=== PATIENT | male | born 1985 | race American Indian/Alaskan Native ===

== ENCOUNTER 2016-06-30 18:13 | Emergency (ER) | payer MEDICAID, OTHER ==
[2016-06-30 19:11] VITALS: BP 133/72
[2016-06-30] MEDS ORDERED: LORazepam 0.5 MG Tab PO ONE (19:32)
--- NOTE | 2016-06-30 19:40 | EDM.PDOC ---
ED HPI EYE COMPLAINT - General Chief Complaint: Eye Problems Stated Complaint: ICHY,BURNING EYES Time Seen by Provider: 06/30/16 19:15 Source: Reports: Patient History Limitations: Reports: No limitations - History of Present Illness INITIAL COMMENTS - FREE TEXT/NARRATIVE: This 30 yo male patient reports with itching and discharge from his eyes over the past couple of days. Symptom Onset Date: 06/29/16 Timing/Duration: Reports: Constant, Getting worse - Related Data Allergies/ADRs: Allergies No Known Allergies Allergy (Verified 03/09/16 20:00) Home Meds: Ambulatory Orders Medication Instructions Recorded Confirmed FLUoxetine HCl [Fluoxetine HCl] 20 mg PO DAILY 03/09/16 06/30/16 hydrOXYzine HCl [Atarax] 25 mg PO DAILY PRN 03/09/16 06/30/16 Past Medical History HEENT History: Reports: Allergic rhinitis Respiratory History: Reports: Sleep apnea Psychiatric History: Reports: Anxiety, Depression - Past Surgical History GI Surgical History: Reports: Appendectomy Social & Family History - Tobacco Use Smoking Status *Q: Current Some Day Smoker Years of Tobacco use: 15 Packs/Tins Daily: 0.2 Used Tobacco, but Quit: No Second Hand Smoke Exposure: No - Recreational Drug Use Recreational Drug Use: No ED ROS GENERAL - Review of Systems Review Of Systems: ROS reveals no pertinent complaints other than HPI. ED EXAM GENERAL W FULL EYE - Physical Exam Exam: See Below Exam Limited By: No limitations General Appearance: alert, WD/WN, no apparent distress Eye Exam: bilateral eye: conjunctival injection, EOMI, PERRL Eyelids: bilateral: erythema Conjunctiva & Sclera: bilateral: injected Pupils: normal accommodation Pupillary Reaction: bilateral: brisk Ears: normal external exam, normal canal, hearing grossly normal, normal TMs Nose: normal inspection, normal mucosa, no blood Throat/Mouth: Normal inspection, Normal lips, Normal teeth, Normal gums, Normal oropharynx, Normal voice, No airway compromise Head: atraumatic, normocephalic Neck: normal inspection, supple, non-tender, full range of motion Respiratory/Chest: no respiratory distress, lungs clear, normal breath sounds, no accessory muscle use, chest non-tender Cardiovascular: normal peripheral pulses, regular rate, rhythm, no edema, no gallop, no JVD, no murmur, no rub GI/Abdominal: normal bowel sounds, soft, non tender, no organomegaly, no distention, no abnormal bruit, no mass (Male) Exam: Deferred Rectal (Males) Exam: Deferred Back Exam: normal inspection, full range of motion, NT Extremities: normal inspection, normal range of motion, non-tender, normal capillary refill, no pedal edema Neurological: alert, oriented, CN II-XII intact, normal cognition, normal gait, normal reflexes, no motor/sensory deficits Psychiatric: normal affect, normal mood Skin Exam: Warm, Dry, Intact, Normal color, No rash Lymphatic: no adenopathy Course - Vital Signs Last Recorded V/S: Last Vital Signs Temp 37.1 C 06/30/16 19:08 Pulse 110 H 06/30/16 19:08 Resp 20 06/30/16 19:08 BP 133/72 06/30/16 19:08 Pulse Ox 95 06/30/16 19:08 - Orders/Labs/Meds Meds: Medications Discontinued Medications Generic Name Dose Route Start Last Admin Trade Name Joseq PRN Reason Stop Dose Admin Lorazepam 0.5 mg 06/30/16 19:32 06/30/16 19:39 Ativan PO 06/30/16 19:33 0.5 mg ONETIME ONE Administration Polymyxin/Trimethoprim Sulfate Confirm 06/30/16 19:41 Polytrim Ophth Soln Administered 06/30/16 19:42 Dose 10 ml .ROUTE .STK-MED ONE Departure - Departure Time of Disposition: 19:36 Disposition: Home, Self-Care 01 Condition: fair Clinical Impression: Anxiety Conjunctivitis Qualifiers: Conjunctivitis type: acute Acute conjunctivitis type: bacterial Laterality: bilateral Qualified Code(s): H10.33 - Unspecified acute conjunctivitis, bilateral Instructions: Bacterial Conjunctivitis, [id number] Forms: ED Department Discharge Care Plan Goals: The patient was advised of the examination results during the visit. The patient was given an oral dose of Ativan (0.5 mg) while in the ED. The patient was discharged with Polytrim to place 1 drop in each eye 4 times per day for 7 days. If the patient has any additional symptoms or concerns, the patient should follow-up with his primary care facility or return to the emergency department.
[2016-06-30] MEDS ORDERED: Polymyxin B/Trimethoprim 10 ML Bottle ONE (19:41)
[2016-06-30] MEDS ORDERED: Polymyxin B/Trimethoprim 10 ML Bottle EYEBOTH ONE (19:41)
== END 2016-06-30 19:49 | disposition home or self-care (01) ==
LOC: DL.ED 18:13
DX: H10.33 Unspecified acute conjunctivitis, bilateral (principal); F41.9 Anxiety disorder, unspecified; F17.210 Nicotine dependence, cigarettes, uncomplicated; Z90.49 Acquired absence of other specified parts of digestive tract; Z79.899 Other long term (current) drug therapy
CPT/HCPCS: 99283; A9270

== ENCOUNTER 2016-12-09 02:02 | Emergency (ER) | payer SELFPAY ==
[2016-12-09 02:01] VITALS: BP 138/80
--- NOTE | 2016-12-09 02:01 | EDM.PDOC ---
ED HPI GENERAL MEDICAL PROBLEM - General Stated Complaint: IN BY AMBULANCE Time Seen by Provider: 12/09/16 01:54 Source of Information: Reports: Patient, EMS - History of Present Illness INITIAL COMMENTS - FREE TEXT/NARRATIVE: ED via [facility]. c/o pain to right ankle after missing step going down stairs. [place] pop in ankle and unable to bear weight. Air splint per EMS to right ankle. Onset: Today Right Ankle Pain Score (Numeric/FACES): 9 - Related Data Allergies Allergy/AdvReac Type Severity Reaction Status Date / Time No Known Allergies Allergy Verified 12/09/16 02:01 Home Meds: Home Meds . [No Known Home Meds] 12/09/16 [History] Past Medical History HEENT History: Reports: Allergic Rhinitis Respiratory History: Reports: Sleep Apnea Psychiatric History: Reports: Anxiety, Depression - Past Surgical History GI Surgical History: Reports: Appendectomy Social & Family History - Tobacco Use Smoking Status *Q: Current Some Day Smoker Years of Tobacco use: 15 Packs/Tins Daily: 0.2 Used Tobacco, but Quit: No Second Hand Smoke Exposure: No - Recreational Drug Use Recreational Drug Use: No Review of Systems - Review of Systems Review Of Systems: ROS reveals no pertinent complaints other than HPI. ED EXAM, GENERAL - Physical Exam Exam: See Below Exam Limited By: No Limitations General Appearance: Alert, Mild Distress, Obese Eye Exam: Bilateral Eye: EOMI Ears: Normal External Exam Nose: Normal Inspection Peripheral Pulses: 2+: Dorsalis Pedis (R) Extremities: Joint Swelling (right lateral ankle pain with movement) Neurological: Alert, Oriented, Normal Cognition Course - Vital Signs Last Recorded V/S: Last Vital Signs Temp 97.7 F 12/09/16 01:55 Pulse 118 H 12/09/16 01:55 Resp 18 12/09/16 01:55 BP 138/80 12/09/16 01:55 Pulse Ox 95 12/09/16 01:55 - Orders/Labs/Meds Orders: Active Orders 24 hr Category Date Time Status Ankle Min 3V Rt [CR] Urgent Exams 12/09/16 02:03 Taken Departure - Departure Time of Disposition: 02:53 Disposition: Home, Self-Care 01 Condition: Good Clinical Impression: Ankle sprain Qualifiers: Encounter type: initial encounter Involved ligament of ankle: unspecified ligament Laterality: right Qualified Code(s): S93.401A - Sprain of unspecified ligament of right ankle, initial encounter - Discharge Information Instructions: Crutch Use, [id number], Ankle Sprain, [id number] Additional Instructions: alternate tylenol and ibuprofen for discomfort recheck in clinic 2 weeks Cam Walker Crutches with weight bearing as tolerated. Rest , ice, and elevation for 48 hours. - My Orders Last 24 Hours: My Active Orders 12/09/16 02:03 Ankle Min 3V Rt [CR] Urgent - Assessment/Plan Last 24 Hours: My Active Orders 12/09/16 02:03 Ankle Min 3V Rt [CR] Urgent
[2016-12-09] MEDS ORDERED: Ibuprofen 600 MG Tab PO ONE (02:55)
== END 2016-12-09 03:08 | disposition home or self-care (01) ==
LOC: DL.ED 02:02
DX: S93.401A Sprain of unspecified ligament of right ankle, initial encounter (principal); F17.210 Nicotine dependence, cigarettes, uncomplicated; Z90.49 Acquired absence of other specified parts of digestive tract; W10.9XXA Fall (on) (from) unspecified stairs and steps, initial encounter
CPT/HCPCS: 73610; 99283; A9270

== ENCOUNTER 2017-07-31 15:45 | Inpatient (IN) | payer MEDICAID ==
[2017-07-31] MEDS ORDERED: Iopamidol 755 Mg/ML 100 ML Bottle IVPUSH ONE (18:05)
[2017-07-31] MEDS ORDERED: Piperacillin/Tazobactam 3.375 GM in Sodium Chloride 0.9% 100 ML IV ONE (20:55)
[2017-08-01] MEDS ORDERED: Vancomycin 2 GM in Sodium Chloride 0.9% 500 ML IV ONE (03:00)
[2017-08-01] MEDS ORDERED: diphenhydrAMINE 25 MG Tab PO PRN (03:35)
[2017-08-01 03:48] LABS: ANION GAP 8.5; CHLORIDE,CL 103 mmol/L (101-111); SODIUM,NA 135 mmol/L (135-145)
[2017-08-01] MEDS: Vancomycin 2 GM in Sodium Chloride 0.9% 500 ML IV SCH ×3 (03:54→18:24)
[2017-08-01] MEDS: Acetaminophen 325 MG Tab PO PRN ×4 (03:57→20:03)
[2017-08-01] MEDS: guaiFENesin 100 MG/5 ML Soln 5 ML UD Cup PO PRN ×3 (04:53→20:03)
[2017-08-01] MEDS: Piperacillin/Tazobactam 3.375 GM in Sodium Chloride 0.9% 100 ML IV SCH ×3 (05:41→21:00)
[2017-08-01] MEDS: Heparin Sodium 5,000 Units/ML Vial SUBCUT SCH ×3 (06:13→21:43)
[2017-08-01 07:03] LABS: ANION GAP 12.3; CHLORIDE,CL 100 mmol/L (101-111); SODIUM,NA 133 mmol/L (135-145)
[2017-08-01] MEDS: Gentamicin 0.3% Ophth Soln 5 ML Bottle EYEBOTH SCH ×5 (07:13→21:06)
[2017-08-01] MEDS ORDERED: Benzocaine/Cetylpyridinium/Menthol Lozenge MUCMEM PRN (11:26)
--- NOTE | 2017-08-01 13:03 | PCM.HP ---
H&P History of Present Illness - General Date of Service: 07/31/17 Admit Problem/Dx: Admission Diagnosis/Problem Admission Diagnosis/Problem Cellulitis Source of Information: Patient, Provider - History of Present Illness Initial Comments - Free Text/Narative: the patient is a 31-year-old morbidly obese gentleman. He denies any significant past medical history. He came into the emergency room with left lower extremity pain. The pain started a few days ago. it is associated with the left leg redness. He is also complaining of cough, no sputum, subjective fever. He noticed blood in his underwear but he was not clear where it is coming from. He is minimally active. Morbidly obese. Has not changed underwear apparently for days. Left Lower Leg Pain Score (Numeric/FACES): 5 - Related Data Allergies/Adverse Reactions: Allergies Allergy/AdvReac Type Severity Reaction Status Date / Time No Known Allergies Allergy Verified 08/01/17 03:26 Home Medications: Home Meds . [No Known Home Meds] 12/09/16 [History] Past Medical History HEENT History: Reports: Allergic Rhinitis Respiratory History: Reports: Sleep Apnea Psychiatric History: Reports: Anxiety, Depression - Past Surgical History GI Surgical History: Reports: Appendectomy Social & Family History - Tobacco Use Smoking Status *Q: Current Some Day Smoker Years of Tobacco use: 15 Packs/Tins Daily: 0.2 Used Tobacco, but Quit: No Second Hand Smoke Exposure: No - Recreational Drug Use Recreational Drug Use: No H&P Review of Systems - Review of Systems: Review Of Systems: See Below General: Reports: Fever (subjective) Pulmonary: Reports: Cough. Denies: Shortness of Breath, Sputum, Hemoptysis Cardiovascular: Denies: Chest Pain Gastrointestinal: Denies: Abdominal Pain, Diarrhea Genitourinary: Denies: Dysuria Skin: Reports: Other (left leg redness, left lower abdominal redness.) Neurological: Reports: No Symptoms Exam - Exam Exam: See Below - Vital Signs Vital Signs: Last Vital Signs Temp 37.7 C 08/01/17 11:34 Pulse 104 H 08/01/17 11:34 Resp 20 08/01/17 11:34 BP 146/72 H 08/01/17 11:34 Pulse Ox 95 08/01/17 11:34 Weight: 199.036 kg - Exam General: Alert, Oriented Neck: Supple Lungs: Clear to Auscultation, Normal Respiratory Effort GI/Abdominal Exam: Normal Bowel Sounds, Soft, Non-Tender, Other (morbidly obese) Extremities: No: Pedal Edema Skin: Warm, Dry, Other (left leg and left lower abdominal skin redness) Neuro Extensive - Mental Status: Alert, Oriented x3 Psychiatric: Alert, Normal Affect, Normal Mood - Patient Data Lab Results Last 24 hrs: Laboratory Results - last 24 hr 07/31/17 07/31/17 07/31/17 Range/Units 17:10 17:10 17:10 WBC 6.9 (5.0-10.0) 10^3/uL RBC 3.68 L (4.6-6.2) 10^6/uL Hgb 11.3 L (14.0-18.0) g/dL Hct 34.1 L (40.0-54.0) % MCV 92.7 (80-100) fL MCH 30.7 (27.0-34.0) pg MCHC 33.1 (33.0-35.0) g/dL Plt Count 145 L (150-450) 10^3/uL Neut % (Auto) 64.5 (42.2-75.2) % Lymph % (Auto) 21.4 (20.5-50.1) % [place] % (Auto) 11.6 H (2-8) % Eos % (Auto) 1.3 (1.0-3.0) % Baso % (Auto) 1.2 H (0.0-1.0) % D-Dimer, Quantitative 1350 H (0-400) ng/mL Sodium 135 (135-145) mmol/L Potassium 3.5 L (3.6-5.0) mmol/L Chloride 103 (101-111) mmol/L Carbon Dioxide 27.0 (21.0-31.0) mmol/L Anion Gap 8.5 BUN 4 L (7-18) mg/dL Creatinine 0.6 (0.6-1.3) mg/dL Est Cr Clr Drug Dosing 195.80 mL/min Estimated GFR (MDRD) > 60 BUN/Creatinine Ratio 6.66 Glucose 102 (74-105) mg/dL Lactic Acid (0.5-2.2) mmol/L Calcium 7.7 L (8.4-10.2) mg/dl Total Bilirubin 1.1 H (0.2-1.0) mg/dL AST 312 H (10-42) IU/L ALT 70 H (10-60) IU/L Alkaline Phosphatase 108 (42-121) IU/L C-Reactive Protein (0.0-1.3) mg/dL B-Natriuretic Peptide 119 H (0-100) pg/ml Total Protein 8.2 (6.7-8.2) g/dl Albumin 2.6 L (3.2-5.5) g/dl Globulin 5.6 Albumin/Globulin Ratio 0.46 Urine Color (YELLOW) Urine Appearance (CLEAR) Urine pH (5.0-9.0) Ur Specific [place] (1.005-1.030) Urine Protein (NEGATIVE) Urine Glucose (UA) (NEGATIVE) Urine Ketones (NEGATIVE) mg/dL Urine Occult Blood (NEGATIVE) Urine Nitrite (NEGATIVE) Urine Bilirubin (NEGATIVE) Urine Urobilinogen (0.2-1.0) mg/dL Ur Leukocyte Esterase (NEGATIVE) Urine RBC /HPF Urine WBC (0-5/HPF) /HPF Ur Epithelial Cells /HPF Amorphous Sediment (0/HPF) /HPF Urine Bacteria (0-FEW/HPF) /HPF Urine Mucus /LPF Ketones Negative 07/31/17 07/31/17 07/31/17 Range/Units 17:10 17:10 18:14 WBC (5.0-10.0) 10^3/uL RBC (4.6-6.2) 10^6/uL Hgb (14.0-18.0) g/dL Hct (40.0-54.0) % MCV (80-100) fL MCH (27.0-34.0) pg MCHC (33.0-35.0) g/dL Plt Count (150-450) 10^3/uL Neut % (Auto) (42.2-75.2) % Lymph % (Auto) (20.5-50.1) % [place] % (Auto) (2-8) % Eos % (Auto) (1.0-3.0) % Baso % (Auto) (0.0-1.0) % D-Dimer, Quantitative (0-400) ng/mL Sodium (135-145) mmol/L Potassium (3.6-5.0) mmol/L Chloride (101-111) mmol/L Carbon Dioxide (21.0-31.0) mmol/L Anion Gap BUN (7-18) mg/dL Creatinine (0.6-1.3) mg/dL Est Cr Clr Drug Dosing mL/min Estimated GFR (MDRD) BUN/Creatinine Ratio Glucose (74-105) mg/dL Lactic Acid 1.3 (0.5-2.2) mmol/L Calcium (8.4-10.2) mg/dl Total Bilirubin (0.2-1.0) mg/dL AST (10-42) IU/L ALT (10-60) IU/L Alkaline Phosphatase (42-121) IU/L C-Reactive Protein 1.5 H (0.0-1.3) mg/dL B-Natriuretic Peptide (0-100) pg/ml Total Protein (6.7-8.2) g/dl Albumin (3.2-5.5) g/dl Globulin Albumin/Globulin Ratio Urine Color Yellow (YELLOW) Urine Appearance Clear (CLEAR) Urine pH 7.0 (5.0-9.0) Ur Specific [place] 1.010 (1.005-1.030) Urine Protein Negative (NEGATIVE) Urine Glucose (UA) Negative (NEGATIVE) Urine Ketones Negative (NEGATIVE) mg/dL Urine Occult Blood Negative (NEGATIVE) Urine Nitrite Negative (NEGATIVE) Urine Bilirubin Negative (NEGATIVE) Urine Urobilinogen 2.0 H (0.2-1.0) mg/dL Ur Leukocyte Esterase Negative (NEGATIVE) Urine RBC 0-5 /HPF Urine WBC 0-5 (0-5/HPF) /HPF Ur Epithelial Cells Rare /HPF Amorphous Sediment Rare (0/HPF) /HPF Urine Bacteria Rare (0-FEW/HPF) /HPF Urine Mucus Rare /LPF Ketones 08/01/17 08/01/17 Range/Units 06:05 06:05 WBC 6.9 (5.0-10.0) 10^3/uL RBC 3.76 L (4.6-6.2) 10^6/uL Hgb 11.6 L (14.0-18.0) g/dL Hct 34.8 L (40.0-54.0) % MCV 92.6 (80-100) fL MCH 30.9 (27.0-34.0) pg MCHC 33.3 (33.0-35.0) g/dL Plt Count 151 (150-450) 10^3/uL Neut % (Auto) (42.2-75.2) % Lymph % (Auto) (20.5-50.1) % [place] % (Auto) (2-8) % Eos % (Auto) (1.0-3.0) % Baso % (Auto) (0.0-1.0) % D-Dimer, Quantitative (0-400) ng/mL Sodium 133 L (135-145) mmol/L Potassium 3.3 L (3.6-5.0) mmol/L Chloride 100 L (101-111) mmol/L Carbon Dioxide 24.0 (21.0-31.0) mmol/L Anion Gap 12.3 BUN 4 L (7-18) mg/dL Creatinine 0.6 (0.6-1.3) mg/dL Est Cr Clr Drug Dosing 195.80 mL/min Estimated GFR (MDRD) > 60 BUN/Creatinine Ratio Glucose 88 (74-105) mg/dL Lactic Acid (0.5-2.2) mmol/L Calcium 7.8 L (8.4-10.2) mg/dl Total Bilirubin (0.2-1.0) mg/dL AST (10-42) IU/L ALT (10-60) IU/L Alkaline Phosphatase (42-121) IU/L C-Reactive Protein (0.0-1.3) mg/dL B-Natriuretic Peptide (0-100) pg/ml Total Protein (6.7-8.2) g/dl Albumin (3.2-5.5) g/dl Globulin Albumin/Globulin Ratio Urine Color (YELLOW) Urine Appearance (CLEAR) Urine pH (5.0-9.0) Ur Specific [place] (1.005-1.030) Urine Protein (NEGATIVE) Urine Glucose (UA) (NEGATIVE) Urine Ketones (NEGATIVE) mg/dL Urine Occult Blood (NEGATIVE) Urine Nitrite (NEGATIVE) Urine Bilirubin (NEGATIVE) Urine Urobilinogen (0.2-1.0) mg/dL Ur Leukocyte Esterase (NEGATIVE) Urine RBC /HPF Urine WBC (0-5/HPF) /HPF Ur Epithelial Cells /HPF Amorphous Sediment (0/HPF) /HPF Urine Bacteria (0-FEW/HPF) /HPF Urine Mucus /LPF Ketones Result Diagrams: 08/01/17 06:05 08/01/17 06:05 Derrick Results Last 24 hrs: Microbiology 07/31/17 17:22 Group A Streptococcus Rapid Screen - Final Throat NEGATIVE STREP A SCREEN 07/31/17 17:22 Influenza Type A Antigen Screen - Final Nasal, Unspecified NEGATIVE INFLUENZA A VIRUS AG Influenza Type B Antigen Screen - Final NEGATIVE INFLUENZA B VIRUS AG - Problem List (1) Cellulitis SNOMED Code(s): 227415326 ICD Code: L03.90 - CELLULITIS, UNSPECIFIED Status: Acute Current Visit: Yes Problem List Initiated/Reviewed/Updated: Yes Orders Last 24hrs: Active Orders 24 hr Category Date Time Status Admission Diagnosis [ADT] Routine ADT 08/01/17 03:28 Ordered Patient Status [ADT] Routine ADT 07/31/17 20:35 Active Activity as Tolerated [RC] .Routine Care 08/01/17 03:32 Active Vital Signs [RC] 04,08,12,16,20,00 Care 08/01/17 03:32 Active Regular Diet [DIET] Diet 08/01/17 Breakfast Active Chest 1V Frontal [CR] Routine Exams 07/31/17 16:35 Taken CULTURE BLOOD [BC] Routine Lab 07/31/17 17:10 Received CULTURE BLOOD [BC] Routine Lab 07/31/17 17:10 Received CULTURE STREP A CONFIRMATION [RM] Routine Lab 07/31/17 17:22 Results STREP SCRN A RAPID W CULT CONF [RM] Routine Lab 07/31/17 17:22 Results VANCOMYCIN TROUGH [CHEM] Timed Lab 08/02/17 02:00 Ordered Acetaminophen [Tylenol] Med 08/01/17 03:35 Active 650 mg PO Q4H PRN Benzocaine/Cetylpyrd/Menthol [Cepacol Sore Throat] Med 08/01/17 11:26 Active 1 lozenge MUCMEM Q6H PRN Gentamicin [Garamycin 0.3% Ophth Soln] Med 08/01/17 08:00 Active 0 ml EYEBOTH QID Heparin Sodium Med 08/01/17 06:00 Active 5,000 units SUBCUT Q8H Piperacillin/Tazobactam [Zosyn] 3.375 gm Med 08/01/17 05:00 Active Sodium Chloride 0.9% [Normal Saline] 100 ml IV Q8H Potassium Chloride [Klor-Con 10] Med 08/01/17 12:51 Once 40 meq PO ONETIME ONE Vancomycin 2 gm Med 08/01/17 03:00 Active Sodium Chloride 0.9% [Normal Saline] 500 ml IV Q8H Vancomycin Pharmacy to Dose [Pharmacy to Dose - Med 08/01/17 03:45 Pending Vancomycin] 1 dose .XX ASDIRECTED Zolpidem [Ambien] Med 08/01/17 03:39 Active 5 mg PO BEDTIME PRN diphenhydrAMINE [Benadryl] Med 08/01/17 03:35 Active 25 mg PO BEDTIME PRN guaiFENesin [Robitussin] Med 08/01/17 04:00 Active 200 mg PO Q6H PRN Resuscitation Status Routine Resus Stat 08/01/17 03:30 Ordered Medication Orders Acetaminophen (Tylenol) 650 mg PO Q4H PRN PRN Reason: Fever Last Admin: 08/01/17 08:52 Dose: 650 mg Admin: 08/01/17 03:57 Dose: 650 mg Benzocaine/Menthol (Cepacol Sore Throat) 1 lozenge MUCMEM Q6H PRN PRN Reason: cough, sore throat Diphenhydramine HCl (Benadryl) 25 mg PO BEDTIME PRN PRN Reason: Sleep Gentamicin Sulfate (Garamycin 0.3% Oph Soln) 0 ml EYEBOTH QID COUNT INCLUDES THE [facility] Last Admin: 08/01/17 10:26 Dose: Admin: 08/01/17 07:13 Dose: Guaifenesin (Robitussin) 200 mg PO Q6H PRN PRN Reason: Cough Last Admin: 08/01/17 04:53 Dose: 200 mg Heparin Sodium (Porcine) (Heparin Sodium) 5,000 units SUBCUT Q8H COUNT INCLUDES THE [facility] Last Admin: 08/01/17 06:13 Dose: 5,000 units Piperacillin Sod/Tazobactam (Sod 3.375 gm/ Sodium Chloride) 100 mls @ 200 mls/ hr IV Q8H COUNT INCLUDES THE [facility] Last Admin: 08/01/17 05:41 Dose: 200 mls/hr Vancomycin HCl 2 gm/ Sodium (Chloride) 500 mls @ 333.333 mls/hr IV Q8H COUNT INCLUDES THE [facility] Last Admin: 08/01/17 11:03 Dose: 333.333 mls/hr Admin: 08/01/17 03:54 Dose: Vancomycin HCl (Pharmacy To Dose - Vancomycin) 1 dose .XX ASDIRECTED COUNT INCLUDES THE [facility] Zolpidem Tartrate (Ambien) 5 mg PO BEDTIME PRN PRN Reason: Sleep Assessment/Plan Comment:: The patient is a 31-year-old morbidly obese gentleman who presented with subjective fever, cough, left lower extremity distal redness, redness of the left abdominal pannus area. #1 CT of the chest showed right infiltrate Will treat for pneumonia Obtain sputum culture, blood cultures Treat with Zosyn and vancomycin #2 left lower extremity redness possible cellulitis, Possible cellulitis of the lower abdominal wall There are a few follicles but no apparent abscess. Will obtain blood culture Treat with Zosyn and vancomycin #3 blood in the underwear The source is not obvious This is small amount to be GI bleed, might be an abscess that opened and drained Monitor #4 DVT prophylaxis will be with subcutaneous heparin
--- NOTE | 2017-08-01 13:09 | PCM.PN ---
- General Info Date of Service: 08/01/17 Admission Dx/Problem (Free Text): Admission Diagnosis/Problem Admission Diagnosis/Problem Cellulitis Subjective Update: overnight no apparent disorder bleeding. Had low-grade temperature. Coughing with no sputum. No abdominal pain, chest pain, shortness of breath. - Review of Systems General: Denies: Weakness Cardiovascular: Denies: Edema Skin: Reports: Other (lower extremity redness and lower abdominal redness continued) - Patient Data Vitals - Most Recent: Last Vital Signs Temp 37.7 C 08/01/17 11:34 Pulse 104 H 08/01/17 11:34 Resp 20 08/01/17 11:34 BP 146/72 H 08/01/17 11:34 Pulse Ox 95 08/01/17 11:34 Weight - Most Recent: 199.036 kg I&O - Last 24 Hours: Intake & Output 07/31/17 08/01/17 08/01/17 22:59 06:59 14:59 Intake Total 1048 2440 Output Total 300 650 Balance 748 1790 Lab Results Last 24 Hours: Laboratory Results - last 24 hr 07/31/17 07/31/17 07/31/17 Range/Units 17:10 17:10 17:10 WBC 6.9 (5.0-10.0) 10^3/uL RBC 3.68 L (4.6-6.2) 10^6/uL Hgb 11.3 L (14.0-18.0) g/dL Hct 34.1 L (40.0-54.0) % MCV 92.7 (80-100) fL MCH 30.7 (27.0-34.0) pg MCHC 33.1 (33.0-35.0) g/dL Plt Count 145 L (150-450) 10^3/uL Neut % (Auto) 64.5 (42.2-75.2) % Lymph % (Auto) 21.4 (20.5-50.1) % [place] % (Auto) 11.6 H (2-8) % Eos % (Auto) 1.3 (1.0-3.0) % Baso % (Auto) 1.2 H (0.0-1.0) % D-Dimer, Quantitative 1350 H (0-400) ng/mL Sodium 135 (135-145) mmol/L Potassium 3.5 L (3.6-5.0) mmol/L Chloride 103 (101-111) mmol/L Carbon Dioxide 27.0 (21.0-31.0) mmol/L Anion Gap 8.5 BUN 4 L (7-18) mg/dL Creatinine 0.6 (0.6-1.3) mg/dL Est Cr Clr Drug Dosing 195.80 mL/min Estimated GFR (MDRD) > 60 BUN/Creatinine Ratio 6.66 Glucose 102 (74-105) mg/dL Lactic Acid (0.5-2.2) mmol/L Calcium 7.7 L (8.4-10.2) mg/dl Total Bilirubin 1.1 H (0.2-1.0) mg/dL AST 312 H (10-42) IU/L ALT 70 H (10-60) IU/L Alkaline Phosphatase 108 (42-121) IU/L C-Reactive Protein (0.0-1.3) mg/dL B-Natriuretic Peptide 119 H (0-100) pg/ml Total Protein 8.2 (6.7-8.2) g/dl Albumin 2.6 L (3.2-5.5) g/dl Globulin 5.6 Albumin/Globulin Ratio 0.46 Urine Color (YELLOW) Urine Appearance (CLEAR) Urine pH (5.0-9.0) Ur Specific [place] (1.005-1.030) Urine Protein (NEGATIVE) Urine Glucose (UA) (NEGATIVE) Urine Ketones (NEGATIVE) mg/dL Urine Occult Blood (NEGATIVE) Urine Nitrite (NEGATIVE) Urine Bilirubin (NEGATIVE) Urine Urobilinogen (0.2-1.0) mg/dL Ur Leukocyte Esterase (NEGATIVE) Urine RBC /HPF Urine WBC (0-5/HPF) /HPF Ur Epithelial Cells /HPF Amorphous Sediment (0/HPF) /HPF Urine Bacteria (0-FEW/HPF) /HPF Urine Mucus /LPF Ketones Negative 07/31/17 07/31/17 07/31/17 Range/Units 17:10 17:10 18:14 WBC (5.0-10.0) 10^3/uL RBC (4.6-6.2) 10^6/uL Hgb (14.0-18.0) g/dL Hct (40.0-54.0) % MCV (80-100) fL MCH (27.0-34.0) pg MCHC (33.0-35.0) g/dL Plt Count (150-450) 10^3/uL Neut % (Auto) (42.2-75.2) % Lymph % (Auto) (20.5-50.1) % [place] % (Auto) (2-8) % Eos % (Auto) (1.0-3.0) % Baso % (Auto) (0.0-1.0) % D-Dimer, Quantitative (0-400) ng/mL Sodium (135-145) mmol/L Potassium (3.6-5.0) mmol/L Chloride (101-111) mmol/L Carbon Dioxide (21.0-31.0) mmol/L Anion Gap BUN (7-18) mg/dL Creatinine (0.6-1.3) mg/dL Est Cr Clr Drug Dosing mL/min Estimated GFR (MDRD) BUN/Creatinine Ratio Glucose (74-105) mg/dL Lactic Acid 1.3 (0.5-2.2) mmol/L Calcium (8.4-10.2) mg/dl Total Bilirubin (0.2-1.0) mg/dL AST (10-42) IU/L ALT (10-60) IU/L Alkaline Phosphatase (42-121) IU/L C-Reactive Protein 1.5 H (0.0-1.3) mg/dL B-Natriuretic Peptide (0-100) pg/ml Total Protein (6.7-8.2) g/dl Albumin (3.2-5.5) g/dl Globulin Albumin/Globulin Ratio Urine Color Yellow (YELLOW) Urine Appearance Clear (CLEAR) Urine pH 7.0 (5.0-9.0) Ur Specific [place] 1.010 (1.005-1.030) Urine Protein Negative (NEGATIVE) Urine Glucose (UA) Negative (NEGATIVE) Urine Ketones Negative (NEGATIVE) mg/dL Urine Occult Blood Negative (NEGATIVE) Urine Nitrite Negative (NEGATIVE) Urine Bilirubin Negative (NEGATIVE) Urine Urobilinogen 2.0 H (0.2-1.0) mg/dL Ur Leukocyte Esterase Negative (NEGATIVE) Urine RBC 0-5 /HPF Urine WBC 0-5 (0-5/HPF) /HPF Ur Epithelial Cells Rare /HPF Amorphous Sediment Rare (0/HPF) /HPF Urine Bacteria Rare (0-FEW/HPF) /HPF Urine Mucus Rare /LPF Ketones 08/01/17 08/01/17 Range/Units 06:05 06:05 WBC 6.9 (5.0-10.0) 10^3/uL RBC 3.76 L (4.6-6.2) 10^6/uL Hgb 11.6 L (14.0-18.0) g/dL Hct 34.8 L (40.0-54.0) % MCV 92.6 (80-100) fL MCH 30.9 (27.0-34.0) pg MCHC 33.3 (33.0-35.0) g/dL Plt Count 151 (150-450) 10^3/uL Neut % (Auto) (42.2-75.2) % Lymph % (Auto) (20.5-50.1) % [place] % (Auto) (2-8) % Eos % (Auto) (1.0-3.0) % Baso % (Auto) (0.0-1.0) % D-Dimer, Quantitative (0-400) ng/mL Sodium 133 L (135-145) mmol/L Potassium 3.3 L (3.6-5.0) mmol/L Chloride 100 L (101-111) mmol/L Carbon Dioxide 24.0 (21.0-31.0) mmol/L Anion Gap 12.3 BUN 4 L (7-18) mg/dL Creatinine 0.6 (0.6-1.3) mg/dL Est Cr Clr Drug Dosing 195.80 mL/min Estimated GFR (MDRD) > 60 BUN/Creatinine Ratio Glucose 88 (74-105) mg/dL Lactic Acid (0.5-2.2) mmol/L Calcium 7.8 L (8.4-10.2) mg/dl Total Bilirubin (0.2-1.0) mg/dL AST (10-42) IU/L ALT (10-60) IU/L Alkaline Phosphatase (42-121) IU/L C-Reactive Protein (0.0-1.3) mg/dL B-Natriuretic Peptide (0-100) pg/ml Total Protein (6.7-8.2) g/dl Albumin (3.2-5.5) g/dl Globulin Albumin/Globulin Ratio Urine Color (YELLOW) Urine Appearance (CLEAR) Urine pH (5.0-9.0) Ur Specific [place] (1.005-1.030) Urine Protein (NEGATIVE) Urine Glucose (UA) (NEGATIVE) Urine Ketones (NEGATIVE) mg/dL Urine Occult Blood (NEGATIVE) Urine Nitrite (NEGATIVE) Urine Bilirubin (NEGATIVE) Urine Urobilinogen (0.2-1.0) mg/dL Ur Leukocyte Esterase (NEGATIVE) Urine RBC /HPF Urine WBC (0-5/HPF) /HPF Ur Epithelial Cells /HPF Amorphous Sediment (0/HPF) /HPF Urine Bacteria (0-FEW/HPF) /HPF Urine Mucus /LPF Ketones Derrick Results Last 24 Hours: Microbiology 07/31/17 17:22 Group A Streptococcus Rapid Screen - Final Throat NEGATIVE STREP A SCREEN 07/31/17 17:22 Influenza Type A Antigen Screen - Final Nasal, Unspecified NEGATIVE INFLUENZA A VIRUS AG Influenza Type B Antigen Screen - Final NEGATIVE INFLUENZA B VIRUS AG Med Orders - Current: Current Medications Acetaminophen (Tylenol) 650 mg PO Q4H PRN PRN Reason: Fever Last Admin: 08/01/17 08:52 Dose: 650 mg Benzocaine/Menthol (Cepacol Sore Throat) 1 lozenge MUCMEM Q6H PRN PRN Reason: cough, sore throat Diphenhydramine HCl (Benadryl) 25 mg PO BEDTIME PRN PRN Reason: Sleep Gentamicin Sulfate (Garamycin 0.3% Ophth Soln) 0 ml EYEBOTH QID [facility] Last Admin: 08/01/17 10:26 Dose: Not Given Guaifenesin (Robitussin) 200 mg PO Q6H PRN PRN Reason: Cough Last Admin: 08/01/17 04:53 Dose: 200 mg Heparin Sodium (Porcine) (Heparin Sodium) 5,000 units SUBCUT Q8H [facility] Last Admin: 08/01/17 06:13 Dose: 5,000 units Piperacillin Sod/Tazobactam (Sod 3.375 gm/ Sodium Chloride) 100 mls @ 200 mls/ hr IV Q8H [facility] Last Admin: 08/01/17 05:41 Dose: 200 mls/hr Vancomycin HCl 2 gm/ Sodium (Chloride) 500 mls @ 333.333 mls/hr IV Q8H [facility] Last Admin: 08/01/17 11:03 Dose: 333.333 mls/hr Potassium Chloride (Klor-Con 10) 40 meq PO ONETIME ONE Stop: 08/01/17 12:52 Vancomycin HCl (Pharmacy To Dose - Vancomycin) 1 dose .XX ASDIRECTED [facility] Zolpidem Tartrate (Ambien) 5 mg PO BEDTIME PRN PRN Reason: Sleep Discontinued Medications Iopamidol (Isovue-370 (76%)) 100 ml IVPUSH ONETIME ONE Stop: 07/31/17 18:06 - Exam General: Alert, Oriented, Other (morbidly obese) Neck: Supple Lungs: Clear to Auscultation, Normal Respiratory Effort Cardiovascular: Regular Rate, Regular Rhythm GI/Abdominal Exam: Normal Bowel Sounds, Soft, Non-Tender (Male) Exam: No Hernia. No: Scrotal Swelling, Scrotum Tenderness (L), Scrotum Tenderness (R) Extremities: No Pedal Edema Skin: Warm, Other (left lower extremity distal area with redness, left side of the lower abdominal wall is erythematous) Neurological: No New Focal Deficit Psy/Mental Status: Alert, Normal Affect, Normal Mood - Problem List & Annotations (1) Cellulitis SNOMED Code(s): 876654897 Code(s): L03.90 - CELLULITIS, UNSPECIFIED Status: Acute Current Visit: Yes - Problem List Review Problem List Initiated/Reviewed/Updated: Yes - My Orders Last 24 Hours: My Active Orders 07/31/17 16:35 Chest 1V Frontal [CR] Routine 07/31/17 17:10 CULTURE BLOOD [BC] Routine CULTURE BLOOD [BC] Routine 07/31/17 17:22 CULTURE STREP A CONFIRMATION [RM] Routine STREP SCRN A RAPID W CULT CONF [RM] Routine 07/31/17 20:35 Patient Status [ADT] Routine 08/01/17 03:00 Vancomycin 2 gm Sodium Chloride 0.9% [Normal Saline] 500 ml IV Q8H 08/01/17 03:28 Admission Diagnosis [ADT] Routine 08/01/17 03:30 Resuscitation Status Routine 08/01/17 03:32 Activity as Tolerated [RC] .Routine Vital Signs [RC] 04,08,12,16,20,00 08/01/17 03:35 Acetaminophen [Tylenol] 650 mg PO Q4H PRN diphenhydrAMINE [Benadryl] 25 mg PO BEDTIME PRN 08/01/17 03:39 Zolpidem [Ambien] 5 mg PO BEDTIME PRN 08/01/17 03:45 Vancomycin Pharmacy to Dose [Pharmacy to Dose - Vancomycin] 1 dose .XX ASDIRECTED 08/01/17 04:00 guaiFENesin [Robitussin] 200 mg PO Q6H PRN 08/01/17 05:00 Piperacillin/Tazobactam [Zosyn] 3.375 gm Sodium Chloride 0.9% [Normal Saline] 100 ml IV Q8H 08/01/17 06:00 Heparin Sodium 5,000 units SUBCUT Q8H 08/01/17 08:00 Gentamicin [Garamycin 0.3% Ophth Soln] 0 ml EYEBOTH QID 08/01/17 11:26 Benzocaine/Cetylpyrd/Menthol [Cepacol Sore Throat] 1 lozenge MUCMEM Q6H PRN 08/01/17 12:51 Potassium Chloride [Klor-Con 10] 40 meq PO ONETIME ONE 08/01/17 13:04 CULTURE SPUTUM + SMEAR [RM] Routine 08/01/17 Breakfast Regular Diet [DIET] - Plan Plan:: The patient is a 31-year-old morbidly obese gentleman who presented with subjective fever, cough, left lower extremity distal redness, redness of the left abdominal pannus area. #1 CT of the chest showed right infiltrate Will treat for pneumonia Obtain sputum culture, pending blood cultures Treat with Zosyn and vancomycin #2 left lower extremity redness possible cellulitis, Possible cellulitis of the lower abdominal wall There are a few follicles but no apparent abscess. pending blood culture Treat with Zosyn and vancomycin #3 blood in the underwear The source is not obvious This is small amount to be GI bleed, might be an abscess that opened and drained Monitor #4 hypokalemia We'll replace and recheck in the morning #5 DVT prophylaxis will be with subcutaneous heparin
[2017-08-01] MEDS ORDERED: Potassium Chloride 10 MEQ Tab.ER PO ONE (14:15)
[2017-08-01] MEDS: Ibuprofen 400 MG Tab PO PRN (15:39)
[2017-08-01] MEDS: Zolpidem 5 MG Tab PO PRN (23:10)
[2017-08-02] MEDS: Acetaminophen 325 MG Tab PO PRN ×3 (02:01→23:46)
[2017-08-02] MEDS: guaiFENesin 100 MG/5 ML Soln 5 ML UD Cup PO PRN ×4 (02:02→21:21)
[2017-08-02] MEDS: Vancomycin 2 GM in Sodium Chloride 0.9% 500 ML IV SCH ×3 (03:33→18:25)
[2017-08-02] MEDS: Sodium Chloride 0.9% 10 ML Syringe FLUSH PRN ×7 (03:33→21:50)
[2017-08-02] MEDS: Heparin Sodium 5,000 Units/ML Vial SUBCUT SCH ×3 (05:11→21:23)
[2017-08-02] MEDS: Piperacillin/Tazobactam 3.375 GM in Sodium Chloride 0.9% 100 ML IV SCH ×3 (06:12→21:13)
[2017-08-02 06:58] LABS: ANION GAP 7.3; CHLORIDE,CL 104 mmol/L (101-111); SODIUM,NA 134 mmol/L (135-145)
[2017-08-02] MEDS: Gentamicin 0.3% Ophth Soln 5 ML Bottle EYEBOTH SCH ×4 (08:11→21:16)
[2017-08-02] MEDS: Ibuprofen 400 MG Tab PO PRN ×2 (09:26→17:41)
--- NOTE | 2017-08-02 10:21 | PCM.PN ---
- General Info Date of Service: 08/02/17 Admission Dx/Problem (Free Text): Admission Diagnosis/Problem Admission Diagnosis/Problem Cellulitis Subjective Update: overnight the patient continued to have low-grade temperature. Redness in the left lower extremity and abdominal wall has improved. Coughing with no sputum. Small abscess in the suprapubic area had very small amount of bleeding. No abdominal pain, chest pain, shortness of breath. Functional Status: Reports: Pain Controlled, Tolerating Diet - Review of Systems General: Reports: Fever Pulmonary: Denies: Shortness of Breath Cardiovascular: Denies: Chest Pain Gastrointestinal: Denies: Abdominal Pain Neurological: Denies: Confusion - Patient Data Vitals - Most Recent: Last Vital Signs Temp 37.3 C 08/02/17 08:06 Pulse 106 H 08/02/17 08:06 Resp 20 08/02/17 08:06 BP 130/69 08/02/17 08:06 Pulse Ox 92 L 08/02/17 08:06 Weight - Most Recent: 199.036 kg I&O - Last 24 Hours: Intake & Output 08/01/17 08/02/17 08/02/17 22:59 06:59 14:59 Intake Total 2751 1404 Output Total 1300 400 Balance 1451 1004 Lab Results Last 24 Hours: Laboratory Results - last 24 hr 08/02/17 08/02/17 08/02/17 Range/Units 02:50 06:28 06:28 WBC 6.6 (5.0-10.0) 10^3/uL RBC 3.72 L (4.6-6.2) 10^6/uL Hgb 11.5 L (14.0-18.0) g/dL Hct 34.3 L (40.0-54.0) % MCV 92.2 (80-100) fL MCH 30.9 (27.0-34.0) pg MCHC 33.5 (33.0-35.0) g/dL Plt Count 141 L (150-450) 10^3/uL Neut % (Auto) 53.9 (42.2-75.2) % Lymph % (Auto) 29.8 (20.5-50.1) % [place] % (Auto) 10.5 H (2-8) % Eos % (Auto) 5.2 H (1.0-3.0) % Baso % (Auto) 0.6 (0.0-1.0) % Add Manual Diff Yes Neutrophils % (Manual) 52 (42-75) % Band Neutrophils % 5 % Lymphocytes % (Manual) 33 (20-50) % Monocytes % (Manual) 6 (2-8) % Eosinophils % (Manual) 4 H (1-3) % Polychromasia Sodium 134 L (135-145) mmol/L Potassium 3.3 L (3.6-5.0) mmol/L Chloride 104 (101-111) mmol/L Carbon Dioxide 26.0 (21.0-31.0) mmol/L Anion Gap 7.3 BUN 4 L (7-18) mg/dL Creatinine 0.6 (0.6-1.3) mg/dL Est Cr Clr Drug Dosing 195.80 mL/min Estimated GFR (MDRD) > 60 Glucose 90 (74-105) mg/dL Calcium 7.7 L (8.4-10.2) mg/dl Vancomycin Trough 17.5 H (10-15) ug/ml Derrick Results Last 24 Hours: Microbiology 07/31/17 17:22 Quick Strep Confirmation Culture - Final Throat NO GROUP A STREP ISOLATED Group A Streptococcus Rapid Screen - Final NEGATIVE STREP A SCREEN 07/31/17 17:10 Aerobic Blood Culture - Preliminary Blood - Venous NO GROWTH AFTER 1 DAY Anaerobic Blood Culture - Preliminary NO GROWTH AFTER 1 DAY 07/31/17 17:10 Aerobic Blood Culture - Preliminary Blood NO GROWTH AFTER 1 DAY Anaerobic Blood Culture - Preliminary NO GROWTH AFTER 1 DAY Med Orders - Current: Current Medications Acetaminophen (Tylenol) 650 mg PO Q4H PRN PRN Reason: Fever Last Admin: 08/02/17 02:01 Dose: 650 mg Benzocaine/Menthol (Cepacol Sore Throat) 1 lozenge MUCMEM Q6H PRN PRN Reason: cough, sore throat Last Admin: 08/01/17 13:28 Dose: 1 lozenge Diphenhydramine HCl (Benadryl) 25 mg PO BEDTIME PRN PRN Reason: Sleep Furosemide (Lasix) 20 mg PO BIDDIURETIC KALEB Gentamicin Sulfate (Garamycin 0.3% Ophth Soln) 0 ml EYEBOTH QID KAL[facility] Last Admin: 08/02/17 08:11 Dose: 1 drop Guaifenesin (Robitussin) 200 mg PO Q6H PRN PRN Reason: Cough Last Admin: 08/02/17 07:34 Dose: 200 mg Heparin Sodium (Porcine) (Heparin Sodium) 5,000 units SUBCUT Q8H [facility] Last Admin: 08/02/17 05:11 Dose: 5,000 units Piperacillin Sod/Tazobactam (Sod 3.375 gm/ Sodium Chloride) 100 mls @ 200 mls/ hr IV Q8H [facility] Last Infusion: 08/02/17 06:55 Dose: Infused Vancomycin HCl 2 gm/ Sodium (Chloride) 500 mls @ 333.333 mls/hr IV Q8H [facility] Last Admin: 08/02/17 03:33 Dose: 200 mls/hr Ibuprofen (Motrin) 400 mg PO Q6H PRN PRN Reason: Pain/Fever Last Admin: 08/02/17 09:26 Dose: 400 mg Potassium Chloride (Klor-Con 10) 40 meq PO BIDMEALS [facility] Stop: 08/02/17 18:01 Potassium Chloride (Klor-Con 10) 20 meq PO WITHBREAKFAST [facility] Sodium Chloride (Saline Flush) 10 ml FLUSH ASDIRECTED PRN PRN Reason: IV Use Last Admin: 08/02/17 06:10 Dose: 10 ml Vancomycin HCl (Pharmacy To Dose - Vancomycin) 1 dose .XX ASDIRECTED [facility] Zolpidem Tartrate (Ambien) 5 mg PO BEDTIME PRN PRN Reason: Sleep Last Admin: 08/01/17 23:10 Dose: 5 mg Discontinued Medications Iopamidol (Isovue-370 (76%)) 100 ml IVPUSH ONETIME ONE Stop: 07/31/17 18:06 Potassium Chloride (Klor-Con 10) 40 meq PO ONETIME ONE Stop: 08/01/17 14:16 Last Admin: 08/01/17 14:19 Dose: 40 meq - Exam General: Alert, Oriented Lungs: Clear to Auscultation, Normal Respiratory Effort Cardiovascular: Regular Rate, Regular Rhythm GI/Abdominal Exam: Normal Bowel Sounds, Soft, Non-Tender Extremities: Pedal Edema (1-2+ bilateral) Skin: Warm, Dry, Other (Erythema of lower abdominal wall and left lower extremity is mild, improved) - Problem List & Annotations (1) Cellulitis SNOMED Code(s): 910392905 Code(s): L03.90 - CELLULITIS, UNSPECIFIED Status: Acute Current Visit: Yes - Problem List Review Problem List Initiated/Reviewed/Updated: Yes - My Orders Last 24 Hours: My Active Orders 08/01/17 11:26 Benzocaine/Cetylpyrd/Menthol [Cepacol Sore Throat] 1 lozenge MUCMEM Q6H PRN 08/01/17 13:04 CULTURE SPUTUM + SMEAR [RM] Routine 08/01/17 15:06 Ibuprofen [Motrin] 400 mg PO Q6H PRN 08/01/17 20:59 Sodium Chloride 0.9% [Saline Flush] 10 ml FLUSH ASDIRECTED PRN 08/02/17 11:00 Potassium Chloride [Klor-Con 10] 40 meq PO BIDMEALS 08/02/17 14:00 Furosemide [Lasix] 20 mg PO BIDDIURETIC 08/03/17 05:15 BASIC METABOLIC PANEL,BMP [CHEM] AM CBC WITH AUTO DIFF [HEME] AM 08/03/17 08:00 Potassium Chloride [Klor-Con 10] 20 meq PO WITHBREAKFAST - Plan Plan:: The patient is a 31-year-old morbidly obese gentleman who presented with subjective fever, cough, left lower extremity distal redness, redness of the left abdominal pannus area. #1 CT of the chest showed right infiltrate Will treat for pneumonia Pending sputum culture, pending blood cultures Treat with Zosyn and vancomycin #2 left lower extremity redness possible cellulitis, Possible cellulitis of the lower abdominal wall There are a few follicles but no apparent abscess. pending blood culture Treat with Zosyn and vancomycin #3 blood in the underwear This was likely due to very small amount of bleeding from the suprapubic area follicular abscess Monitor #4 hypokalemia We'll replace and recheck in the morning #5 lower extremity edema Treat with Lasix, potassium supplement, compression stocking #6 DVT prophylaxis will be with subcutaneous heparin
[2017-08-02] MEDS: Potassium Chloride 10 MEQ Tab.ER PO SCH ×2 (10:54→17:16)
[2017-08-02] MEDS: Furosemide 20 MG Tab PO SCH (13:29)
[2017-08-02] MEDS ORDERED: Furosemide 20 MG Tab PO ONE (18:00)
[2017-08-02] MEDS: Zolpidem 5 MG Tab PO PRN (21:53)
[2017-08-03] MEDS: Sodium Chloride 0.9% 10 ML Syringe FLUSH PRN ×3 (03:02→06:32)
[2017-08-03] MEDS: Vancomycin 2 GM in Sodium Chloride 0.9% 500 ML IV SCH ×2 (03:05→12:12)
[2017-08-03] MEDS: Piperacillin/Tazobactam 3.375 GM in Sodium Chloride 0.9% 100 ML IV SCH ×3 (05:59→23:52)
[2017-08-03] MEDS: Heparin Sodium 5,000 Units/ML Vial SUBCUT SCH ×3 (06:02→23:54)
[2017-08-03] MEDS ORDERED: Potassium Chloride 10 MEQ Tab.ER PO SCH (08:00)
[2017-08-03] MEDS ORDERED: Gentamicin 0.3% Ophth Soln 5 ML Bottle EYEBOTH ONE (09:14)
[2017-08-03] MEDS: guaiFENesin 100 MG/5 ML Soln 5 ML UD Cup PO PRN (09:53)
[2017-08-03] MEDS: Furosemide 20 MG Tab PO SCH ×2 (09:53→14:56)
[2017-08-03] MEDS: Gentamicin 0.3% Ophth Soln 5 ML Bottle EYEBOTH SCH ×4 (09:56→23:55)
[2017-08-03] MEDS: Acetaminophen 325 MG Tab PO PRN (10:03)
[2017-08-03 10:10] LABS: ANION GAP 10.6; CHLORIDE,CL 105 mmol/L (101-111); SODIUM,NA 135 mmol/L (135-145)
--- NOTE | 2017-08-03 12:29 | PN ---
DATE: 08/03/2017 SUBJECTIVE: Mr. All Del Toro is a 31-year-old male with medical history significant for morbid obesity, presented to the ER with complaints of left lower extremity pain and was noted to have possible cellulitis, had complaints of having cough and was diagnosed with possible pneumonia and kept on antibiotics. For the last 24 hours, the patient had episodes of acute confusion last night after receiving Ambien. He saw his brother outside the room where there was no one. He denies any chest pain. He is well oriented to time, place, and person. This morning, he complains of swelling to his lower extremities. He denies any abdominal pain. No nausea. No vomiting. No diarrhea. REVIEW OF SYSTEMS: Cardiovascular, respiratory, gastrointestinal, neurology, constitutional were all evaluated. PHYSICAL EXAMINATION: Vital Signs: Temperature of 98.4, pulse of 111, blood pressure 122/73, respiratory rate of 20, saturating at 94%. General Appearance: The patient is well oriented to time, place, and person. Follows commands spontaneously. Cardiovascular System: S1, S2 heard with normal intensity. Respiratory System: Clear to auscultation bilaterally. No wheeze. Abdomen: Soft. Bowel sounds positive. Nontender. No rigidity. Extremities: 2+ edema noted bilateral lower extremities with some erythema. Neurology: No gross focal neurological deficit. MEDICATIONS: Reviewed. Continue with, 1. Tylenol 650 every 4 hours as needed for pain and fever. 2. Benadryl 25 mg at bedtime as needed for sleep. 3. Lasix 20 mg twice a day. 4. Robitussin 200 mg every 6 hours as needed for cough. 5. Heparin 5000 units subcu q.8 hourly. 6. Ibuprofen 400 mg every 6 hours as needed for pain and fever. 7. Ativan as needed. 8. Zosyn. 9. Potassium chloride 20 mEq with breakfast. 10.Vancomycin. 11.Ambien 5 mg at bedtime as needed for sleep. LABORATORY DATA: WBC 7.9, hemoglobin 11.5, hematocrit 35.2, platelet count 164. Sodium 135, potassium 3.6, chloride 105, bicarb 23, BUN 5, creatinine 0.8, glucose 107. ASSESSMENT: 1. Cellulitis. 2. Possible pneumonia. 3. Possible sleep apnea. 4. History of alcohol use with possible withdrawals. 5. Edema to the lower extremities. 6. Questionable underlying pulmonary disease. PLAN: 1. Cellulitis. The patient noted to have possible cellulitis. He is noted to have edema to the lower extremities bilaterally, so one might consider right ventricular failure in the differentials. The patient is obese and the patient could have underlying COPD versus sleep apnea leading to right ventricular pressure with possible cor pulmonale. We will order for a 2D echocardiogram, and we will closely follow. He is currently on Lasix low dose, we will continue the same. 2. Possible pneumonia. CT scan of the chest showed evidence of possible infiltrates. The patient is currently on IV antibiotic with Zosyn. We will discontinue the vancomycin for now as cultures did not show any evidence of MRSA or gram-positive cocci. We will continue Zosyn for now. 3. Edema. The patient has bilateral lower extremity edema. The patient is encouraged to keep his lower extremity elevated, and we will have a Tubigrip to decrease the swelling. Continue with low-dose Lasix. 4. The patient will be scheduled for pulmonary function test as well as sleep apnea study as an outpatient. He is discharged. 5. Alcohol use. The patient is educated about alcohol cessation. Strongly encouraged him to quit drinking. We will have him on CIWA protocol with Ativan. 6. Confusion. The patient had episode of confusion last night and this morning. Unsure if this is resulting from Ambien, we will discontinue the Ambien for now. The patient might have underlying sleep apnea. We will check his saturations during sleep. [facility] /[id number]
[2017-08-03] MEDS: LORazepam 1 MG Tab PO PRN ×2 (12:57→17:17)
[2017-08-03] MEDS: Ibuprofen 400 MG Tab PO PRN ×2 (12:57→20:49)
[2017-08-03] MEDS ORDERED: Vancomycin 2 GM in Sodium Chloride 0.9% 500 ML IV SCH (18:00)
[2017-08-03] MEDS ORDERED: Haloperidol Lactate 5 MG/ML SDV IM ONE ×3 (18:37→22:50)
[2017-08-03] MEDS ORDERED: LORazepam 2 MG/ML Syringe IVPUSH PRN (18:38)
[2017-08-03] MEDS ORDERED: LORazepam 1 MG Tab PO PRN (18:40)
[2017-08-03] MEDS ORDERED: LORazepam 2 MG/ML Syringe IM ONE (21:52)
[2017-08-03] MEDS ORDERED: LORazepam 2 MG/ML Syringe IVPUSH ONE ×2 (21:56→22:50)
[2017-08-03] MEDS ORDERED: diphenhydrAMINE 50 MG/ML SDV IVPUSH ONE (22:50)
[2017-08-03 23:39] LABS: ALLEN TEST pos; O2 DELIVERY DEVICE NON REBR MASK
[2017-08-04] MEDS ORDERED: Haloperidol Lactate 5 MG/ML SDV IM ONE (00:24)
[2017-08-04] MEDS ORDERED: LORazepam 2 MG/ML Syringe IVPUSH ONE (00:25)
[2017-08-04 00:51] LABS: BASE EXCESS ARTERIAL -2 mmol/L ((-2)-(+3)); BICARBONATE,ARTERIAL 26.7 mmol/L (22-26); O2 SATURATION ARTERIAL 94 % (95-100); PCO2 ARTERIAL 71 mmHg (35-45); PO2 ARTERIAL 82 mmHg (70-100)
[2017-08-04 03:42] VITALS: BP 145/78
--- NOTE | 2017-08-04 07:04 | DISCH ---
DATE OF ADMISSION: 07/31/2017. DATE OF DISCHARGE: 08/04/17. ADMITTING DIAGNOSES: 1. Cellulitis of the left lower extremity. 2. Possible pneumonia. DISCHARGE DIAGNOSES: 1. Alcohol withdrawals with acute delirium tremens. 2. Acute encephalopathy secondary to delirium tremens secondary to alcohol withdrawal. 3. Cellulitis to the left lower extremity. 4. Acute hypoxic respiratory failure. HISTORY OF PRESENTING ILLNESS: Mr. Alverto Romero is a 31-year-old male with no significant past medical history except for morbid obesity, chronic history of alcohol use, admitted to the hospital with swelling and pain to the left lower extremity and noted to have acute cellulitis. The patient was started on IV antibiotics. He was also noted to have pneumonia on the CT scan of the chest and was continued on IV antibiotics. The patient started getting confused earlier today, requiring administration of Ativan as per [facility] protocol, but later in the evening, the patient started getting into acute delirium tremens with acute encephalopathic state with acute delirious episodes where he was wandering across the hallway in the hospital and trying to get into other resident's rooms. The patient did receive Haldol 5 mg x3 doses and also received IV Ativan 2 mg x3 doses and also Benadryl to keep him calm, but as the patient is getting hypoxic, the patient would need intensive care unit admission and he will need to be transferred to higher level of care where there is ICU facility as he would need a Precedex drip and also close monitoring of his respiratory status. He became hypoxic, requiring 15 L of nasal cannula oxygen. As we do not have any intensive care unit, the patient is being transported to higher level of care. DISCHARGE MEDICATIONS: 1. Tylenol as needed for pain. 2. Zosyn for cellulitis. PHYSICAL EXAMINATION: At the time of discharge: Vital signs: Temperature of 98.7, pulse of 99, blood pressure 148/69, respiratory rate of 20, saturating at 94% on 15 L of oxygen. General Appearance: The patient is mildly sedated at this time. Does not offer any complaints. Cardiovascular System: S1, S2 heard with normal intensity. No gallops. Respiratory System: Clear to auscultation bilaterally. No wheeze. No crepitations. Abdomen: Soft. Bowel sounds positive. Nontender. No rigidity. Extremities: 2+ edema noted in bilateral lower extremities. CONDITION ON ADMISSION: Poor. CONDITION AT DISCHARGE: Stable, but the patient is being transferred to higher level of care at [facility] to medical ICU. [facility] /[id number] MTDD
--- NOTE | 2017-08-05 12:59 | EKG ---
07/31/2017 - QUITA VU - FINDINGS: The 12-lead EKG shows normal sinus rhythm with sinus tachycardia with heart rate of 102. No significant ST elevation or ST depression noted on this 12-lead EKG. [facility] /[id number]
== END 2017-08-04 02:53 | DRG 602 ==
LOC: DL.ED 15:45 → DL.MS 18:52 → UNDOADMIN 18:52 → DL.MS 20:35
PROVIDERS: ADMIT Internal Medicine; ATTEND Internal Medicine
DX: L03.116 Cellulitis of left lower limb (principal); J18.9 Pneumonia, unspecified organism; L02.214 Cutaneous abscess of groin; L03.311 Cellulitis of abdominal wall; K92.2 Gastrointestinal hemorrhage, unspecified; Z68.43 Body mass index [BMI] 50.0-59.9, adult; E66.01 Morbid (severe) obesity due to excess calories; I27.81 Cor pulmonale (chronic); J44.9 Chronic obstructive pulmonary disease, unspecified; E87.6 Hypokalemia; R60.0 Localized edema; R41.0 Disorientation, unspecified; T42.6X5A Adverse effect of other antiepileptic and sedative-hypnotic drugs, initial encounter; G47.30 Sleep apnea, unspecified; F41.9 Anxiety disorder, unspecified; F32.9 Major depressive disorder, single episode, unspecified; F17.200 Nicotine dependence, unspecified, uncomplicated; Z28.21 Immunization not carried out because of patient refusal; J30.9 Allergic rhinitis, unspecified
CPT/HCPCS: 36415; 36600; 71045; 71260; 80048; 80053; 80202; 81001; 82009; 82803; 83605; 83880; 85025; 85027; 85379; 86140; 87040; 87081; 87430; 87804; 94660; 96365; 96366; 96375; 99284; 99285; A9270-GY; J1200; J1630; J1644; J2060; J2543; J3370; J7040; J7050; Q9967

== ENCOUNTER 2019-05-14 11:23 | Emergency (ER) | payer OTHER, SELFPAY ==
[2019-05-14 18:01] VITALS: BP 142/89; PULSE 98
== END 2019-05-14 12:25 | disposition left against medical advice (07) ==
LOC: DL.ED 11:23
DX: Z53.21 Procedure and treatment not carried out due to patient leaving prior to being seen by health care provider (principal)

== ENCOUNTER 2020-06-18 08:12 | Emergency (ER) | payer MEDICAID, OTHER ==
[2020-06-18 08:20] VITALS: BP 111/53; PULSE 99
--- NOTE | 2020-06-18 08:55 | EDM.PDOC ---
ED HPI GENERAL MEDICAL PROBLEM - General Chief Complaint: General Stated Complaint: AMBULANCE Time Seen by Provider: 06/18/20 08:40 Source of Information: Reports: Patient History Limitations: Reports: No Limitations - History of Present Illness INITIAL COMMENTS - FREE TEXT/NARRATIVE: This 34 yo male was brought to the ED by [facility] due to increased swelling in his lower extremities over the past 3-4 days. The patient reports he only has a history of cellulitis in his lower extremity and has no additional health history. The patient reports he has not been out of the house due to COVID. The patient reports his girlfriend has been getting him everything that he needs. The patient reports he does not have a primary care provider and does not take any medications. The patient then reports he has been taking ibuprofen for the past couple of days. The patient reports he gets short of breath with little to no physical effort. The patient denies any chest pain or abdominal pain. EMS reports the patient's oxygen saturation was 84% on room air. 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 [No Known Home Meds] 06/18/20 [History] Past Medical History HEENT History: Reports: Allergic Rhinitis Respiratory History: Reports: Sleep Apnea Psychiatric History: Reports: Anxiety, Depression - Past Surgical History GI Surgical History: Reports: Appendectomy Social & Family History - Tobacco Use Tobacco Use Status *Q: Never Tobacco User Second Hand Smoke Exposure: No - Caffeine Use Caffeine Use: Reports: Coffee - Recreational Drug Use Recreational Drug Use: No ED ROS GENERAL - Review of Systems Review Of Systems: Comprehensive ROS is negative, except as noted in HPI. ED EXAM, GENERAL - Physical Exam Exam: See Below Exam Limited By: Other (morbidly obese) General Appearance: Alert, WD/WN, Moderate Distress, Obese Eye Exam: Bilateral Eye: EOMI, Normal Inspection, PERRL Ears: Normal External Exam, Normal Canal, Hearing Grossly Normal, Normal TMs Nose: Normal Inspection, Normal Mucosa, No Blood Throat/Mouth: Normal Inspection, Normal Lips, Normal Teeth, Normal Gums, Normal Oropharynx, Normal Voice, No Airway Compromise Head: Facial Swelling Neck: Normal Inspection, Supple, Non-Tender, Full Range of Motion Respiratory/Chest: Decreased Breath Sounds Cardiovascular: Normal Peripheral Pulses, Regular Rate, Rhythm, No Edema, No Gallop, No JVD, No Murmur, No Rub GI/Abdominal: Normal Bowel Sounds, Soft, Non-Tender, Other (morbid obesity) (Male) Exam: Deferred Rectal (Males) Exam: Deferred Extremities: Pedal Edema Neurological: Alert, Oriented, Abnormal Gait Psychiatric: Normal Affect, Normal Mood Skin Exam: Warm, Dry, Intact, Normal Color, No Rash Lymphatic: No Adenopathy #1 Interpretation EKG Date: 06/18/20 Time: 08:37 Rhythm: Other (Sinus tach) [place]: Normal P-Wave: Present QRS: Normal ST-T: Normal QT: Normal Comparison: NA - No Prior EKG Course - Vital Signs Last Recorded V/S: Last Vital Signs Temp 36.7 C 06/18/20 08:18 Pulse 99 06/18/20 08:18 Resp 20 06/18/20 08:18 BP 111/53 L 06/18/20 08:18 Pulse Ox 95 06/18/20 08:18 - Orders/Labs/Meds Orders: Active Orders 24 hr Category Date Time Status EKG Documentation Completion [RC] STAT Care 06/18/20 08:12 Active CULTURE BLOOD [BC] Stat Lab 06/18/20 08:25 Received CULTURE BLOOD [BC] Stat Lab 06/18/20 08:30 Received Blood Culture x2 Reflex Set [OM.PC] Stat Oth 06/18/20 08:12 Ordered Labs: Laboratory Tests 06/18/20 06/18/20 06/18/20 Range/Units 08:25 08:25 08:25 WBC 6.4 (5.0-10.0) 10^3/uL RBC 3.20 L (4.6-6.2) 10^6/uL Hgb 7.2 L D (14.0-18.0) g/dL Hct 25.2 L (40.0-54.0) % MCV 78.8 L D (80-100) fL MCH 22.5 L (27.0-34.0) pg MCHC 28.6 L (33.0-35.0) g/dL Plt Count 197 (150-450) 10^3/uL Neut % (Auto) 60.4 (42.2-75.2) % Lymph % (Auto) 25.2 (20.5-50.1) % [place] % (Auto) 6.5 (2-8) % Eos % (Auto) 6.5 H (1.0-3.0) % Baso % (Auto) 1.4 H (0.0-1.0) % Add Manual Diff Yes Neutrophils % (Manual) 65 (42-75) % Lymphocytes % (Manual) 21 (20-50) % Monocytes % (Manual) 5 (2-8) % Eosinophils % (Manual) 7 H (1-3) % Basophils % (Manual) 2 Nucleated RBCs 1 /100WBC Polychromasia 1+ slight Hypochromasia 2+ moderate Poikilocytosis 1+ slight Target Cells 1+ slight D-Dimer, Quantitative (0-400) ng/mL Sodium 131 L (136-145) mmol/L Potassium 4.4 (3.5-5.1) mmol/L Chloride 93 L (98-107) mmol/L Carbon Dioxide 34 H (21-32) mmol/L Anion Gap 8.4 (7-13) mEq/L BUN 9 (7-18) mg/dL Creatinine 0.71 (0.70-1.30) mg/dL Est Cr Clr Drug Dosing 165.68 mL/min Estimated GFR (MDRD) > 60 BUN/Creatinine Ratio 12.7 (No establ ref range) Glucose 106 H (74-99) mg/dL Lactic Acid 1.4 (0.4-2.0) mmol/L Calcium 7.1 L (8.5-10.1) mg/dL Total Bilirubin 1.2 H (0.2-1.0) mg/dL AST 43 H (15-37) U/L ALT 29 (16-63) U/L Alkaline Phosphatase 115 (46-116) U/L Ammonia (11-32) umol/L Troponin I < 0.017 (0.000-0.056) ng/mL B-Natriuretic Peptide 117 H (0-100) pg/ml Total Protein 7.9 (6.4-8.2) g/dL Albumin 2.8 L (3.4-5.0) g/dL Globulin 5.1 Albumin/Globulin Ratio 0.55 Amylase 20 L (25-115) U/L Lipase 220 (73-393) U/L Urine Color (YELLOW) Urine Appearance (CLEAR) Urine pH (5.0-9.0) Ur Specific [place] (1.005-1.030) Urine Protein (NEGATIVE) Urine Glucose (UA) (NEGATIVE) Urine Ketones (NEGATIVE) Urine Occult Blood (NEGATIVE) Urine Nitrite (NEGATIVE) Urine Bilirubin (NEGATIVE) Urine Urobilinogen (0.2-1.0) mg/dL Ur Leukocyte Esterase (NEGATIVE) Urine RBC /HPF Urine WBC (0-5/HPF) /HPF Ur Epithelial Cells (NOT SEEN) /HPF Urine Bacteria (0-FEW/HPF) /HPF Urine Mucus (NOT SEEN) /LPF Urine Opiates Screen (NEGATIVE) Ur Oxycodone Screen (NEGATIVE) Urine Methadone Screen (NEGATIVE) Ur Barbiturates Screen (NEGATIVE) U Tricyclic Antidepress (NEGATIVE) Ur Phencyclidine Scrn (NEGATIVE) Ur Amphetamine Screen (NEGATIVE) U Methamphetamines Scrn (NEGATIVE) Urine MDMA Screen (NEGATIVE) U Benzodiazepines Scrn (NEGATIVE) Urine Cocaine Screen (NEGATIVE) U Marijuana (THC) Screen (NEGATIVE) Ethyl Alcohol (0) mg/dL Influenza Type A RNA (NEGATIVE) Influenza Type B RNA (NEGATIVE) SARS-CoV-2 RNA (ROHAN) (NEGATIVE) 06/18/20 06/18/20 06/18/20 Range/Units 08:25 08:25 08:25 WBC (5.0-10.0) 10^3/uL RBC (4.6-6.2) 10^6/uL Hgb (14.0-18.0) g/dL Hct (40.0-54.0) % MCV (80-100) fL MCH (27.0-34.0) pg MCHC (33.0-35.0) g/dL Plt Count (150-450) 10^3/uL Neut % (Auto) (42.2-75.2) % Lymph % (Auto) (20.5-50.1) % [place] % (Auto) (2-8) % Eos % (Auto) (1.0-3.0) % Baso % (Auto) (0.0-1.0) % Add Manual Diff Neutrophils % (Manual) (42-75) % Lymphocytes % (Manual) (20-50) % Monocytes % (Manual) (2-8) % Eosinophils % (Manual) (1-3) % Basophils % (Manual) Nucleated RBCs /100WBC Polychromasia Hypochromasia Poikilocytosis Target Cells D-Dimer, Quantitative 980 H (0-400) ng/mL Sodium (136-145) mmol/L Potassium (3.5-5.1) mmol/L Chloride (98-107) mmol/L Carbon Dioxide (21-32) mmol/L Anion Gap (7-13) mEq/L BUN (7-18) mg/dL Creatinine (0.70-1.30) mg/dL Est Cr Clr Drug Dosing mL/min Estimated GFR (MDRD) BUN/Creatinine Ratio (No establ ref range) Glucose (74-99) mg/dL Lactic Acid (0.4-2.0) mmol/L Calcium (8.5-10.1) mg/dL Total Bilirubin (0.2-1.0) mg/dL AST (15-37) U/L ALT (16-63) U/L Alkaline Phosphatase (46-116) U/L Ammonia 75 H (11-32) umol/L Troponin I (0.000-0.056) ng/mL B-Natriuretic Peptide (0-100) pg/ml Total Protein (6.4-8.2) g/dL Albumin (3.4-5.0) g/dL Globulin Albumin/Globulin Ratio Amylase (25-115) U/L Lipase (73-393) U/L Urine Color (YELLOW) Urine Appearance (CLEAR) Urine pH (5.0-9.0) Ur Specific [place] (1.005-1.030) Urine Protein (NEGATIVE) Urine Glucose (UA) (NEGATIVE) Urine Ketones (NEGATIVE) Urine Occult Blood (NEGATIVE) Urine Nitrite (NEGATIVE) Urine Bilirubin (NEGATIVE) Urine Urobilinogen (0.2-1.0) mg/dL Ur Leukocyte Esterase (NEGATIVE) Urine RBC /HPF Urine WBC (0-5/HPF) /HPF Ur Epithelial Cells (NOT SEEN) /HPF Urine Bacteria (0-FEW/HPF) /HPF Urine Mucus (NOT SEEN) /LPF Urine Opiates Screen (NEGATIVE) Ur Oxycodone Screen (NEGATIVE) Urine Methadone Screen (NEGATIVE) Ur Barbiturates Screen (NEGATIVE) U Tricyclic Antidepress (NEGATIVE) Ur Phencyclidine Scrn (NEGATIVE) Ur Amphetamine Screen (NEGATIVE) U Methamphetamines Scrn (NEGATIVE) Urine MDMA Screen (NEGATIVE) U Benzodiazepines Scrn (NEGATIVE) Urine Cocaine Screen (NEGATIVE) U Marijuana (THC) Screen (NEGATIVE) Ethyl Alcohol (0) mg/dL Influenza Type A RNA Negative (NEGATIVE) Influenza Type B RNA Negative (NEGATIVE) SARS-CoV-2 RNA (ROHAN) Negative (NEGATIVE) 06/18/20 06/18/20 06/18/20 Range/Units 08:25 09:35 09:35 WBC (5.0-10.0) 10^3/uL RBC (4.6-6.2) 10^6/uL Hgb (14.0-18.0) g/dL Hct (40.0-54.0) % MCV (80-100) fL MCH (27.0-34.0) pg MCHC (33.0-35.0) g/dL Plt Count (150-450) 10^3/uL Neut % (Auto) (42.2-75.2) % Lymph % (Auto) (20.5-50.1) % [place] % (Auto) (2-8) % Eos % (Auto) (1.0-3.0) % Baso % (Auto) (0.0-1.0) % Add Manual Diff Neutrophils % (Manual) (42-75) % Lymphocytes % (Manual) (20-50) % Monocytes % (Manual) (2-8) % Eosinophils % (Manual) (1-3) % Basophils % (Manual) Nucleated RBCs /100WBC Polychromasia Hypochromasia Poikilocytosis Target Cells D-Dimer, Quantitative (0-400) ng/mL Sodium (136-145) mmol/L Potassium (3.5-5.1) mmol/L Chloride (98-107) mmol/L Carbon Dioxide (21-32) mmol/L Anion Gap (7-13) mEq/L BUN (7-18) mg/dL Creatinine (0.70-1.30) mg/dL Est Cr Clr Drug Dosing mL/min Estimated GFR (MDRD) BUN/Creatinine Ratio (No establ ref range) Glucose (74-99) mg/dL Lactic Acid (0.4-2.0) mmol/L Calcium (8.5-10.1) mg/dL Total Bilirubin (0.2-1.0) mg/dL AST (15-37) U/L ALT (16-63) U/L Alkaline Phosphatase (46-116) U/L Ammonia (11-32) umol/L Troponin I (0.000-0.056) ng/mL B-Natriuretic Peptide (0-100) pg/ml Total Protein (6.4-8.2) g/dL Albumin (3.4-5.0) g/dL Globulin Albumin/Globulin Ratio Amylase (25-115) U/L Lipase (73-393) U/L Urine Color [place] (YELLOW) Urine Appearance Clear (CLEAR) Urine pH 6.0 (5.0-9.0) Ur Specific [place] 1.025 (1.005-1.030) Urine Protein 30 H (NEGATIVE) Urine Glucose (UA) Negative (NEGATIVE) Urine Ketones Negative (NEGATIVE) Urine Occult Blood Negative (NEGATIVE) Urine Nitrite Negative (NEGATIVE) Urine Bilirubin Small H (NEGATIVE) Urine Urobilinogen >=8.0 H (0.2-1.0) mg/dL Ur Leukocyte Esterase Negative (NEGATIVE) Urine RBC 0-5 /HPF Urine WBC 0-5 (0-5/HPF) /HPF Ur Epithelial Cells Few (NOT SEEN) /HPF Urine Bacteria Few (0-FEW/HPF) /HPF Urine Mucus Few H (NOT SEEN) /LPF Urine Opiates Screen Negative (NEGATIVE) Ur Oxycodone Screen Negative (NEGATIVE) Urine Methadone Screen Negative (NEGATIVE) Ur Barbiturates Screen Negative (NEGATIVE) U Tricyclic Antidepress Negative (NEGATIVE) Ur Phencyclidine Scrn Negative (NEGATIVE) Ur Amphetamine Screen Negative (NEGATIVE) U Methamphetamines Scrn Negative (NEGATIVE) Urine MDMA Screen Negative (NEGATIVE) U Benzodiazepines Scrn Negative (NEGATIVE) Urine Cocaine Screen Negative (NEGATIVE) U Marijuana (THC) Screen Negative (NEGATIVE) Ethyl Alcohol 209 (0) mg/dL Influenza Type A RNA (NEGATIVE) Influenza Type B RNA (NEGATIVE) SARS-CoV-2 RNA (ROHAN) (NEGATIVE) Meds: Medications Discontinued Medications Generic Name Dose Route Start Last Admin Trade Name Freq PRN Reason Stop Dose Admin Pantoprazole Sodium 40 mg 06/18/20 12:10 Pantoprazole 40 Mg Vial IVPUSH 06/18/20 12:11 ONETIME ONE Departure - Departure Time of Disposition: 12:15 Disposition: DC/Tfer to Acute Hospital 02 Condition: Poor Clinical Impression: Hypoxia, ETOH abuse Anemia Qualifiers: Anemia type: unspecified type Qualified Code(s): D64.9 - Anemia, unspecified - Discharge Information *PRESCRIPTION DRUG MONITORING PROGRAM REVIEWED*: Not Applicable *COPY OF PRESCRIPTION DRUG MONITORING REPORT IN PATIENT BERTHA: Not Applicable Forms: Interfacility Transfer EMTALA Care Plan Goals: Discussed the patient's history, examination, lab, x-ray, EKG and ultrasound results with Dr. Sin. Dr. Sin accepted the patient for continued evaluation and management. The patient will be transported by [facility]. Sepsis Event Note (ED) - Evaluation Sepsis Screening Result: No Definite Risk - Focused Exam Vital Signs: Vital Signs Temp Pulse Resp BP Pulse Ox 06/18/20 08:18 36.7 C 99 20 111/53 L 95 - My Orders Last 24 Hours: My Active Orders 06/18/20 08:12 EKG Documentation Completion [RC] STAT Blood Culture x2 Reflex Set [OM.PC] Stat 06/18/20 08:25 CULTURE BLOOD [BC] Stat 06/18/20 08:30 CULTURE BLOOD [BC] Stat - Assessment/Plan Last 24 Hours: My Active Orders 06/18/20 08:12 EKG Documentation Completion [RC] STAT Blood Culture x2 Reflex Set [OM.PC] Stat 06/18/20 08:25 CULTURE BLOOD [BC] Stat 06/18/20 08:30 CULTURE BLOOD [BC] Stat
[2020-06-18 09:08] LABS: ANION GAP 8.4 mEq/L (7-13); CHLORIDE,CL 93 mmol/L (98-107); SODIUM,NA 131 mmol/L (136-145)
[2020-06-18 09:16] LABS: CORONAVIRUS COVID-19 NAA NEGATIVE (NEGATIVE)
--- NOTE | 2020-06-18 11:09 | CR ---
PROCEDURE INFORMATION: Exam: XR Chest Exam date and time: 06/18/2020 10:37 AM Age: 34 years old Clinical indication: Other: Short of breath, elevated d-dimer, bilateral swell TECHNIQUE: Imaging protocol: XR of the chest Views: 2 views. COMPARISON: CR Chest 1V Frontal 08/04/2017 2:33 AM FINDINGS: Limitations: Morbidly obese body habitus and motion with regards to the lateral view. Lungs: The lungs are normally expanded and clear. Pleural spaces: No pleural effusion or pneumothorax. Heart/Mediastinum: Chronic cardiomegaly. Vasculature: Normal pulmonary vessels and width of the vascular pedicle. Bones/joints: Intact and normally aligned. IMPRESSION: Chronic cardiomegaly. No acute pulmonary edema.
--- NOTE | 2020-06-18 11:12 | US ---
PROCEDURE INFORMATION: Exam: US Duplex Lower Extremity Veins, Bilateral Exam date and time: 06/18/2020 10:09 AM Age: 34 years old Clinical indication: Abnormal findings; Abnormal lab test; Elevated d-dimer; Edema, localized; Lower extremity, bilateral; Additional info: Short of breath, elevated d-dimer, bilateral swell TECHNIQUE: Imaging protocol: Real-time duplex ultrasound of the extremities with 2-D valladares scale, color Doppler flow and spectral waveform analysis with image documentation. Complete exam focused on the bilateral lower extremity veins. COMPARISON: No relevant prior studies available. FINDINGS: Limitations: Morbidly obese body habitus. The following veins were not adequately visualized: Bilateral mid and distal femoral vein, peroneal vein and posterior tibial vein. Right deep veins: Unremarkable as visualized. The common femoral, proximal femoral, proximal profunda femoral and popliteal veins are patent without thrombus. Normal Doppler waveforms. Normal compressibility and/or augmentation response. Right superficial veins: Saphenofemoral junction is patent without thrombus. Left deep veins: Unremarkable. The common femoral, proximal femoral femoral, proximal profunda femoral and popliteal veins are patent without thrombus. Normal Doppler waveforms. Normal compressibility and/or augmentation response. Left superficial veins: Saphenofemoral junction is patent without thrombus. Soft tissues: Unremarkable. IMPRESSION: Negative for deep vein thrombosis as visualized. Significant limitations as above.
[2020-06-18] MEDS ORDERED: Pantoprazole 40 MG Vial IVPUSH ONE (12:10)
== END 2020-06-18 12:49 ==
LOC: DL.ED 08:12
DX: D64.9 Anemia, unspecified (principal); R09.02 Hypoxemia; F10.10 Alcohol abuse, uncomplicated; R00.0 Tachycardia, unspecified; M79.89 Other specified soft tissue disorders; E66.01 Morbid (severe) obesity due to excess calories; Z68.44 Body mass index [BMI] 60.0-69.9, adult; Y90.7 Blood alcohol level of 200-239 mg/100 ml; Z20.822 Contact with and (suspected) exposure to COVID-19
CPT/HCPCS: 0240U; 36415; 71046; 80053; 80305; 80307; 81001; 82140; 82150; 82272; 83605; 83690; 83880; 84484; 85025; 85379; 87040; 93005; 93010; 93970; 96374; 99284; 99285; C9113

== ENCOUNTER 2023-05-10 16:55 | Emergency (ER) | payer MEDICAID ==
[2023-05-10 17:20] VITALS: BP 147/90; PULSE 88
== END 2023-05-10 17:41 | disposition home or self-care (01) ==
LOC: DL.ED 16:55
DX: J01.40 Acute pansinusitis, unspecified (principal); H66.93 Otitis media, unspecified, bilateral; Z90.49 Acquired absence of other specified parts of digestive tract
CPT/HCPCS: 99283

== ENCOUNTER 2024-08-11 13:15 | Emergency (ER) | payer MEDICAID ==
[2024-08-11 13:42] LABS: BASOPHILS PERCENT AUTO 0.7 % (0.0-1.0); EOSINOPHILS PERCENT AUTO 4.8 % (1.0-3.0); LYMPHOCYTES PERCENT AUTO 18.3 % (20.5-50.1); MEAN CORPUSCULAR HEMOGLOBIN 32.5 pg (27.0-34.0); MEAN CORPUSCULAR HGB CONC 34.9 g/dL (33.0-35.0); MEAN CORPUSCULAR VOLUME 93.1 fL (80-100); MONOCYTES PERCENT AUTO 8.6 % (2-8); NEUTROPHILS PERCENT AUTO 67.6 % (42.2-75.2); PLATELET COUNT,PLT 273 10^3/uL (150-450); RED BLOOD CELL COUNT 4.62 10^6/uL (4.6-6.2); WHITE BLOOD CELL COUNT,WBC 9.2 10^3/uL (5.0-10.0)
[2024-08-11 14:05] LABS: ALANINE AMINOTRANSFERASE,ALT 218 U/L (16-63); ALBUMIN 3.3 g/dL (3.4-5.0); ALKALINE PHOSPHATASE 62 U/L (46-116); ANION GAP 11.5 mEq/L (7-13); ASPARTATE AMNIOTRANSFERASE,AST 104 U/L (15-37); BILIRUBIN TOTAL 0.2 mg/dL (0.2-1.0); BLOOD UREA NITROGEN,BUN 8 mg/dL (7-18); BUN/CREATININE RATIO 9.9 (No establ ref range); CALCIUM 7.8 mg/dL (8.5-10.1); CARBON DIOXIDE,CO2 27 mmol/L (21-32); CHLORIDE,CL 107 mmol/L (98-107); CREATININE 0.81 mg/dL (0.70-1.30); ETHANOL BLOOD MEDICAL 287 mg/dL (0); GLUCOSE RANDOM 116 mg/dL (70-99); POTASSIUM,K 3.5 mmol/L (3.5-5.1); PROTEIN TOTAL,TP 6.9 g/dL (6.4-8.2); SODIUM,NA 142 mmol/L (136-145)
[2024-08-11 14:14] VITALS: PULSE 92
[2024-08-11 14:19] LABS: A/G RATIO 0.92; ESTIMATED GFR 116 mL/min (>=60)
[2024-08-11] MEDS ORDERED: Lidocaine 1% with EPINEPHrine 1:100,000 20 ML MDV INJECT ONE (15:25)
[2024-08-11 15:29] VITALS: BP 102/60
== END 2024-08-11 16:20 | disposition home or self-care (01) ==
LOC: DL.ED 13:15
DX: S51.012A Laceration without foreign body of left elbow, initial encounter (principal); Z79.899 Other long term (current) drug therapy; Z86.16 Personal history of COVID-19; Z90.49 Acquired absence of other specified parts of digestive tract; V18.2XXA Unspecified pedal cyclist injured in noncollision transport accident in nontraffic accident, initial encounter
CPT/HCPCS: 12002; 36415; 70450; 71045; 72125; 73080-LT; 80053; 80307; 85025; 85610; 99283